=== PATIENT | female | born 1940 | race Caucasian/White ===

== ENCOUNTER 2018-10-17 14:48 | Emergency (ER) | payer OTHER ==
--- NOTE | 2018-10-17 14:51 | EDPHY ---
H & P Time Seen by Provider: 10/17/18 14:51 Constitutional: Initial Vital Signs Temperature (C) 36.6 C 10/17/18 14:56 Heart Rate 82 10/17/18 14:56 Respiratory Rate 18 10/17/18 14:56 Blood Pressure 134/99 H 10/17/18 14:56 O2 Sat (%) 93 10/17/18 14:56 O2 Delivery Mode Nasal Cannula O2 (L/minute) 2 Allergies/Adverse Reactions: codeine Allergy (Verified 10/17/18 15:03) Home Medications: Medication Instructions Recorded Calcium 10/17/18 Vitamin D3 10/17/18 Medical Decision Making ED Course/Re-evaluation: CHIEF COMPLAINT: Syncope, nausea, vomiting HISTORY OF PRESENT ILLNESS: The patient is a 77 y/o female arriving via EMS for a syncopal episode followed by nausea and four episodes of vomiting. The patient flew into [place] from [place] around 4 hours ago. She tried drinking more fluids, but her daughter thinks the patient is dehydrated. While walking in [facility] after lunch she became lightheaded and dizzy. She then had a brief syncopal episode and was helped to the ground. She did not hit her head or have any injuries. After the syncopal episode she had four episodes of vomiting. While en route via EMS she had O2Sats in the upper 80's and lower 90's while on room air. Her vital signs were otherwise unremarkable. Currently she is feeling mildly better but is tired. No fever, headache, body aches, chest pain, heart palpitations, shortness of breath, cough, abdominal pain, urinary or bowel complaints, numbness, paresthesias. REVIEW OF SYSTEMS: A comprehensive 10 system review of systems is otherwise negative aside from elements mentioned in the history of present illness and medical decision making. PHYSICAL EXAM: HR, BP, O2 Sat, RR. Temp noted General Appearance: Tired appearing, alert, well hydrated, appropriate, and non -toxic appearing. Head: Atraumatic without scalp tenderness or obvious injury Eyes: Pupils equal, round, reactive to light and accommodation, EOMI, no trauma , no injection. Ears: Clear bilaterally, no perforation, normal landmarks Nose: Atraumatic, no rhinorrhea, clear. Throat: There is no erythema or exudates, no lesions, normal tonsils, mucus membranes moist. Neck: Supple, 2+ carotid upstroke, nontender, no lymphadenopathy. Respiratory: No retractions, no distress, no wheezes, and no accessory muscle use. Lungs are clear to auscultation bilaterally. Cardiovascular: Regular rate and rhythm, no murmurs, rubs, or gallops. Bilateral carotid, radial, dorsalis pedis, and posterior tibial pulses intact. Good capillary refill all extremities. Gastrointestinal: Abdomen is soft, nontender, non-distended, no masses, no rebound, no guarding, no peritoneal signs. Musculoskeletal: Normal active ROM of all extremities, atraumatic. Neurological: Alert, appropriate, and interactive. The patient has normal DTRs and non-focal cranial nerves, motor, sensory, and cerebellar exam. Skin: No rashes, good turgor, no nodules on palpation. Past medical history: Denies Past surgical history: Cholecystectomy Family history: Denies Social history: Visiting from [place], daughter at bedside, DIAGNOSTICS/PROCEDURES/CRITICAL CARE TIME: EKG: The 12 lead EKG was interpreted by myself as sinus rhythm with a rate of 78. See hard copy and/or "tracemaster" electronic copy for interpretation. DIFFERENTIAL DIAGNOSIS: The differential diagnosis for the patient's syncope included but was not limited to vasovagal syncope, arrhythmia, dehydration, cardiogenic causes, neurogenic causes, and blood loss. MEDICAL DECISION MAKING: The patient is a 77 y/o female arriving via EMS for a syncopal episode followed by nausea and four episodes of vomiting. The patient flew into [place] from [place] around 4 hours ago. While en route via EMS she had O2Sats in the upper 80's and lower 90's while on room air. Her vital signs were otherwise unremarkable. On exam she appears tired. EKG and labs ordered; 1L IV NS and 4mg IV Zofran administered. I suspect she is dehydrated and is affected by the altitude. 1457: I interpreted patient's EKG as sinus rhythm with a rate of 78. 1600: Reassessed patient after medication, she is feeling better. We will road test her to see if she is ready to be discharged. I also discussed the normal EKG and laboratory findings. 1615: Reassessed patient, she passed her road test. Return precautions provided ; patient and her family are comfortable with this plan. - Data Points Laboratory Results: Laboratory Results 10/17/18 15:12 10/17/18 15:12 10/17/18 10/17/18 10/17/18 15:12 15:12 15:12 WBC 8.75 10^3/uL 10^3/uL (3.80-9.50) RBC 4.46 10^6/uL 10^6/uL (4.18-5.33) Hgb 13.1 g/dL g/dL (12.6-16.3) Hct 38.3 % % (38.0-47.0) MCV 85.9 fL fL (81.5-99.8) MCH 29.4 pg pg (27.9-34.1) MCHC 34.2 g/dL g/dL (32.4-36.7) RDW 13.0 % % (11.5-15.2) Plt Count 255 10^3/uL 10^3/uL (150-400) MPV 10.3 fL fL (8.7-11.7) Neut % (Auto) 43.2 % % (39.3-74.2) Lymph % (Auto) 48.0 % H % (15.0-45.0) Randall % (Auto) 8.1 % % (4.5-13.0) Eos % (Auto) 0.3 % L % (0.6-7.6) Baso % (Auto) 0.3 % % (0.3-1.7) Nucleat RBC Rel Count 0.0 % % (0.0-0.2) Absolute Neuts (auto) 3.77 10^3/uL 10^3/uL (1.70-6.50) Absolute Lymphs (auto) 4.20 10^3/uL H 10^3/uL (1.00-3.00) Absolute Monos (auto) 0.71 10^3/uL 10^3/uL (0.30-0.80) Absolute Eos (auto) 0.03 10^3/uL 10^3/uL (0.03-0.40) Absolute Basos (auto) 0.03 10^3/uL 10^3/uL (0.02-0.10) Absolute Nucleated RBC 0.00 10^3/uL 10^3/uL (0-0.01) Immature Gran % 0.1 % % (0.0-1.1) Immature Gran # 0.01 10^3/uL 10^3/uL (0.00-0.10) Sodium 138 mEq/L mEq/L (135-145) Potassium 3.9 mEq/L mEq/L (3.5-5.2) Chloride 104 mEq/L mEq/L (97-110) Carbon Dioxide 24 mEq/l mEq/l (22-31) Anion Gap 10 mEq/L mEq/L (6-14) BUN 14 mg/dL mg/dL (7-23) Creatinine 0.8 mg/dL mg/dL (0.6-1.0) Estimated GFR > 60 Glucose 102 mg/dL H mg/dL (70-100) Calcium 9.0 mg/dL mg/dL (8.5-10.4) Magnesium 2.0 mg/dL mg/dL (1.6-2.3) Troponin I < 0.012 ng/mL ng/mL (0.000-0.034) Medications Given: Discontinued Medications Sodium Chloride (Ns) 1,000 mls @ 0 mls/hr IV EDNOW ONE; Wide Open PRN Reason: Protocol Stop: 10/17/18 15:02 Last Admin: 10/17/18 15:26 Dose: 1,000 mls Ondansetron HCl (Zofran) 4 mg IVP EDNOW ONE Stop: 10/17/18 15:03 Last Admin: 10/17/18 15:27 Dose: 4 mg Departure - Departure Disposition: Home, Routine, Self-Care Clinical Impression: Dehydration Syncope Qualifiers: Syncope type: vasovagal syncope Qualified Code(s): R55 - Syncope and collapse Vomiting Qualifiers: Vomiting type: unspecified Vomiting Intractability: non-intractable Nausea presence: with nausea Qualified Code(s): R11.2 - Nausea with vomiting, unspecified Condition: Good Instructions: Dehydration (ED), Syncope (ED), Acute Nausea and Vomiting (ED), Lightheadedness (ED) Additional Instructions: 1. Drink plenty of fluids. 2. Follow-up with your primary doctor within 72 hours. 3. Return to the Emergency Department for fever, chest pain, shortness of breath , increasing pain or other worsening of condition. Referrals: [facility],. [Clinic] - As per Instructions Report Scribed for: Alireza Whitfield Report Scribed by: Racquel Arroyo Date of Report: 10/17/18 Time of Report: 16:08
[2018-10-17] MEDS ORDERED: NS 1,000 ML IV ONE (15:01)
[2018-10-17] MEDS ORDERED: ONDANSETRON 4 MG/2 ML VIAL IVP ONE (15:02)
[2018-10-17 15:23] LABS: PLATELET COUNT 255 10^3/uL (150-400)
[2018-10-17 16:42] VITALS: BP 130/74
--- NOTE | 2018-10-17 20:02 | CPEKG ---
Test Reason : OPEN Blood Pressure : / mmHG Vent. Rate : 078 BPM Atrial Rate : 078 BPM P-R Int : 154 ms QRS Dur : 086 ms QT Int : 381 ms P-R-T Axes : 076 034 052 degrees QTc Int : 434 ms Sinus rhythm Low voltage, extremity leads Confirmed by Alireza Whitfield ([id number]) on 10/17/2018 8:02:26 PM Referred By: Alireza Whitfield Confirmed By:Alireza Whitfield
== END 2018-10-17 16:30 | disposition home or self-care (01) ==
DX: R55 Syncope and collapse (principal); R11.2 Nausea with vomiting, unspecified; E86.0 Dehydration; Z90.49 Acquired absence of other specified parts of digestive tract
CPT/HCPCS: 93005; 96361; 96374; 99284; J2405